=== PATIENT | female | born 1955 | race African-American/Black ===

== ENCOUNTER 2020-08-23 19:31 | Emergency (ER) | payer OTHER ==
[2020-08-23 19:41] VITALS: BP 139/82; PULSE 106; TEMP 98.1; BMI 28.3
[2020-08-23] MEDS ORDERED: FLUORESCEIN NA 1 EA STRIP OS ONE (20:03)
[2020-08-23] MEDS ORDERED: TETRACAINE 0.5% OPHTH SOLN 2 ML BOTTLE OS ONE (20:03)
[2020-08-23] MEDS ORDERED: ERYTHROMYCIN 0.5% OPHTHALMIC OINTMENT 3.5 GM TUBE ONE (20:13)
== END 2020-08-23 20:32 | disposition home or self-care (01) ==
LOC: JERFT 19:31 → JER 19:31 → JERFT 20:32
DX: S05.02XA Injury of conjunctiva and corneal abrasion without foreign body, left eye, initial encounter (principal)
CPT/HCPCS: 99284-25

== ENCOUNTER 2023-09-08 14:35 | Inpatient (IN) | payer OTHER ==
[2023-09-08 14:42] VITALS: BMI 24.7
[2023-09-08] MEDS ORDERED: ALBUTEROL SO4 2.5/IPRATROPIUM 0.5 INH SOL 3 ML VIAL.NEB. NEB ONE ×3 (15:02→15:31)
[2023-09-08] MEDS ORDERED: methylPREDNISolone NA SUCC 125 MG/2 ML VIAL IVPB ONE (15:38)
[2023-09-08] MEDS ORDERED: methylPREDNISolone NA SUCC 125 MG/2 ML VIAL ONE (15:43)
[2023-09-08 16:22] LABS: POTASSIUM 3.6 mmol/L (3.5-5.1)
[2023-09-08 16:24] LABS: BLOOD UREA NITROGEN 18.2 mg/dL (7-18); CALCIUM 9.4 mg/dL (8.5-10.1); MAGNESIUM 2.1 mg/dL (1.8-2.4)
[2023-09-08 16:25] LABS: ALBUMIN 2.7 g/dl (3.4-5.0)
[2023-09-08 16:28] LABS: CREATININE 1.4 mg/dL (0.55-1.3)
[2023-09-08] MEDS ORDERED: CEFTRIAXONE 1,000 MG in DEXTROSE 5%-WATER - 50 ML IVPB ONE (16:28)
[2023-09-08] MEDS ORDERED: AZITHROMYCIN IVPB 500 MG in DEXTROSE 5%-WATER - 250 ML IVPB ONE (16:28)
[2023-09-08] MEDS ORDERED: guaiFENesin 200 MG/10 ML 10 ML UNIT-DOSE CUPS PO ONE (16:28)
[2023-09-08 16:29] LABS: BILIRUBIN,TOTAL 0.8 mg/dL (0.2-1); TOT PROT 7.3 g/dl (6.4-8.2)
[2023-09-08] MEDS ORDERED: SODIUM CHLORIDE 0.9% 500 ML INFUS.BAG IV ONE (16:30)
[2023-09-08] MEDS ORDERED: ACETAMINOPHEN 1000 MG/100 ML BAG IVPB ONE (16:30)
[2023-09-08] MEDS ORDERED: MAGNESIUM SULFATE IN WATER 2 GM/50 ML IVPB IVPB ONE (16:31)
[2023-09-08] MEDS ORDERED: CEFTRIAXONE 1 GM/50 ML BAG ONE (16:38)
[2023-09-08] MEDS ORDERED: ACETAMINOPHEN INJECTION 100 ML IVPB ONE (16:39)
[2023-09-08] MEDS ORDERED: ALBUTEROL SO4 0.083% IH SOL 2.5 MG/3 ML VIAL.NEB. NEB ONE ×2 (16:41→16:46)
[2023-09-08] MEDS ORDERED: guaiFENesin 200 MG/10 ML 10 ML UNIT-DOSE CUPS ONE (16:46)
[2023-09-08] MEDS ORDERED: MAGNESIUM SULF 50% (8.12 MEQ/2 ML-1 GM VIAL) ONE (16:59)
[2023-09-08 17:01] LABS: HEMATOCRIT 34.7 % (32.4-45.2); MCH 27.9 pg (25.7-33.7); MCHC 31.7 g/dl (32.0-36.0); MEAN CELL VOLUME 88.1 fl (80-96); MEAN PLT VOLUME 8.6 fl (7.5-11.1); PLATELET COUNT 436 10^3/uL (134-434); RBC 3.94 M/mm3 (3.60-5.2); RDW 12.9 % (11.6-15.6); WHITE BLOOD COUNT 18.7 K/mm3 (4.0-10.0)
[2023-09-08] MEDS ORDERED: AZITHROMYCIN IVPB 500 MG/250 ML BAG IVPB ONE (17:58)
[2023-09-08] MEDS ORDERED: morphine CARPU-JECT 4 MG/1 ML DISP.SYRIN IVPUSH ONE (18:06)
[2023-09-08 18:24] LABS: OVALOCYTE 1+
[2023-09-08 18:27] LABS: PLATELET ESTIMATE ADEQUATE
[2023-09-08] MEDS ORDERED: morphine SULFATE 4 MG/ML VIAL ONE (18:33)
[2023-09-08] MEDS ORDERED: TRIMETHOBENZAMIDE HCL 200MG/2ML INJ IM PRN (19:53)
[2023-09-08] MEDS ORDERED: ALBUTEROL SO4 0.083% IH SOL 2.5 MG/3 ML VIAL.NEB. NEB PRN (19:53)
[2023-09-08] MEDS ORDERED: DOCUSATE SODIUM 100 MG CAPSULE (FP) PO PRN (19:53)
[2023-09-08] MEDS: D5-1/2NS+20 MEQ KCL - 20 MEQ/1,000 ML INFUS.BAG IV SCH (21:23)
[2023-09-08] MEDS ORDERED: ACETAMINOPHEN 1000 MG/100 ML BAG IVPB PRN (23:00)
[2023-09-08] MEDS ORDERED: MELATONIN 5 MG TABLETS PO ONE (23:13)
[2023-09-08] MEDS: guaiFENesin/D-METHORPHAN TAB.ER.12H PO SCH (23:22)
[2023-09-09] MEDS: methylPREDNISolone NA SUCC 40 MG/1 ML VIAL IVPUSH SCH ×3 (01:33→17:26)
[2023-09-09] MEDS ORDERED: guaiFENesin 200 MG/10 ML 10 ML UNIT-DOSE CUPS PO ONE (03:55)
[2023-09-09] MEDS ORDERED: FLU VACCINE (FLULAVAL) PF 60 MCG/0.5 ML SYRINGE 2023-2024 IM ONE (09:00)
[2023-09-09] MEDS ORDERED: PNEUMOC 20-VAL CONJ-DIP CRM/PF 0.5 ML SYRINGE IM ONE (09:00)
[2023-09-09 09:05] LABS: HEMATOCRIT 30.7 % (32.4-45.2); HEMOGLOBIN 9.9 GM/dL (10.7-15.3); MCH 28.1 pg (25.7-33.7); MCHC 32.3 g/dl (32.0-36.0); MEAN CELL VOLUME 86.9 fl (80-96); MEAN PLT VOLUME 8.1 fl (7.5-11.1); PLATELET COUNT 418 10^3/uL (134-434); RBC 3.53 M/mm3 (3.60-5.2); RDW 13.2 % (11.6-15.6); WHITE BLOOD COUNT 23.6 K/mm3 (4.0-10.0)
[2023-09-09 09:09] LABS: INR 1.17 (0.83-1.09); PROTHROMBIN TIME (PATIENT) 13.6 SEC (9.7-13.0)
[2023-09-09 09:11] LABS: ACTIVATED PTT 40.6 SECONDS (25.2-36.5)
[2023-09-09 09:23] LABS: POTASSIUM 3.8 mmol/L (3.5-5.1)
[2023-09-09 09:26] LABS: BLOOD UREA NITROGEN 15.8 mg/dL (7-18); CALCIUM 9.2 mg/dL (8.5-10.1)
[2023-09-09 09:30] LABS: CREATININE 1.1 mg/dL (0.55-1.3)
[2023-09-09] MEDS: AZITHROMYCIN IVPB 500 MG/250 ML BAG IVPB SCH (09:43)
[2023-09-09] MEDS: guaiFENesin/D-METHORPHAN TAB.ER.12H PO SCH ×2 (09:43→21:21)
[2023-09-09 09:44] LABS: ANISOCYTOSIS 0; HELMET CELLS 0; HOWELL-JOLLY BODIES 0; MACROCYTOSIS 0; OVALOCYTE 0; ROULEAU 0; SICKELED CELLS 0; TARGET CELLS 0; TEAR DROP CELLS 0; TOXIC GRANULATION 0
[2023-09-09] MEDS: CEFTRIAXONE 1 GM in DEXTROSE 5%-WATER - 50 ML IVPB SCH (11:19)
[2023-09-09] MEDS: HEPARIN NA (PORCINE) 5,000 UNITS/ML 1ML VIAL SQ SCH ×2 (13:08→21:21)
[2023-09-09] MEDS: ACETAMINOPHEN 325 MG TABLET (FP) PO PRN (21:19)
[2023-09-09] MEDS: MELATONIN 5 MG TABLETS PO PRN (21:20)
[2023-09-09] MEDS: D5-1/2NS+20 MEQ KCL - 20 MEQ/1,000 ML INFUS.BAG IV SCH (21:28)
[2023-09-09] MEDS ORDERED: ACETAMINOPHEN 325 MG TABLET (FP) PO PRN ×2 (23:00)
[2023-09-10] MEDS: methylPREDNISolone NA SUCC 40 MG/1 ML VIAL IVPUSH SCH ×2 (02:08→10:26)
[2023-09-10] MEDS: HEPARIN NA (PORCINE) 5,000 UNITS/ML 1ML VIAL SQ SCH ×3 (06:19→21:12)
[2023-09-10] MEDS: CEFTRIAXONE 1 GM in DEXTROSE 5%-WATER - 50 ML IVPB SCH (10:25)
[2023-09-10] MEDS: guaiFENesin/D-METHORPHAN TAB.ER.12H PO SCH ×2 (10:25→21:12)
[2023-09-10] MEDS: AZITHROMYCIN IVPB 500 MG/250 ML BAG IVPB SCH (10:26)
[2023-09-10] MEDS: BENZOCAINE/MENTHOL (CHLORASEPTIC ) LOZENGE MM PRN ×2 (10:36→13:54)
[2023-09-10 11:19] VITALS: RESP 20
[2023-09-10] MEDS: predniSONE 20 MG TABLET (UD) PO SCH (13:52)
[2023-09-10] MEDS: ACETAMINOPHEN 325 MG TABLET (FP) PO PRN (21:15)
[2023-09-10] MEDS: MELATONIN 5 MG TABLETS PO PRN (21:15)
[2023-09-10] MEDS: D5-1/2NS+20 MEQ KCL - 20 MEQ/1,000 ML INFUS.BAG IV SCH (22:51)
[2023-09-11] MEDS: HEPARIN NA (PORCINE) 5,000 UNITS/ML 1ML VIAL SQ SCH ×2 (05:35→13:50)
[2023-09-11 10:00] LABS: HEMATOCRIT 37.7 % (32.4-45.2); HEMOGLOBIN 11.9 GM/dL (10.7-15.3); MCH 27.8 pg (25.7-33.7); MCHC 31.5 g/dl (32.0-36.0); MEAN CELL VOLUME 88.3 fl (80-96); MEAN PLT VOLUME 9.3 fl (7.5-11.1); PLATELET COUNT 440 10^3/uL (134-434); RBC 4.27 M/mm3 (3.60-5.2); RDW 13.2 % (11.6-15.6); WHITE BLOOD COUNT 22.4 K/mm3 (4.0-10.0)
[2023-09-11 10:13] LABS: POTASSIUM 3.6 mmol/L (3.5-5.1)
[2023-09-11 10:22] LABS: BLOOD UREA NITROGEN 17.6 mg/dL (7-18); CALCIUM 9.4 mg/dL (8.5-10.1)
[2023-09-11] MEDS: predniSONE 20 MG TABLET (UD) PO SCH (10:57)
[2023-09-11] MEDS: guaiFENesin/D-METHORPHAN TAB.ER.12H PO SCH (10:58)
[2023-09-11] MEDS: CEFTRIAXONE 1 GM in DEXTROSE 5%-WATER - 50 ML IVPB SCH (10:58)
[2023-09-11] MEDS: AZITHROMYCIN IVPB 500 MG/250 ML BAG IVPB SCH (11:00)
[2023-09-11 13:18] LABS: ANISOCYTOSIS 1+; MACROCYTOSIS 0
[2023-09-11 16:07] VITALS: BP 148/84; TEMP 99.2
[2023-09-11] MEDS: BENZOCAINE/MENTHOL (CHLORASEPTIC ) LOZENGE MM PRN (17:10)
[2023-09-11 17:16] VITALS: PULSE 89
== END 2023-09-11 18:42 | disposition home or self-care (01) | DRG 194 ==
LOC: JER 14:35 → JERFT 14:35 → JERBED 16:48 → J6S 22:34
PROVIDERS: ADMIT Internal Medicine; ATTEND Internal Medicine
DX: J18.9 Pneumonia, unspecified organism (principal); J45.41 Moderate persistent asthma with (acute) exacerbation; B33.8 Other specified viral diseases; D72.829 Elevated white blood cell count, unspecified; F17.210 Nicotine dependence, cigarettes, uncomplicated
CPT/HCPCS: 0241U-QW; 36415; 71045-TC-FY; 80048; 80053; 83735; 84484; 85025; 85610; 85730; 87040; 87807; 87899; 90677; 90686; 93005; 93010; 94640; 94761; 99285-25; G0008; J1644